=== PATIENT | male | born 1950 | race Caucasian/White ===

== ENCOUNTER 2021-03-05 11:15 | Day surgery (SDC) | payer MEDICARE ==
[2021-02-28 10:41] LABS: BASOPHILS % (AUTO) 0.9 % (0-1); EOSINOPHILS # (AUTO) 0.3 X10'3 (0-0.9); EOSINOPHILS % (AUTO) 5.6 % (0-6); HEMATOCRIT 38.7 % (42.0-52.0); HEMOGLOBIN 13.3 g/dl (14.0-17.9); LYMPHOCYTES # (AUTO) 0.8 X10'3 (1.1-4.8); LYMPHOCYTES % (AUTO) 14.3 % (21-51); MEAN CORPUSCULAR HEMOGLOBIN 31.5 PG (27.0-31.0); MEAN CORPUSCULAR HGB CONC 34.3 g/dL (33.0-36.5); MEAN CORPUSCULAR VOLUME 91.7 FL (78-98); MEAN PLATELET VOLUME 6.8 FL (7.4-10.4); MONOCYTES # (AUTO) 0.6 X10'3 (0-0.9); MONOCYTES % (AUTO) 11.8 % (2-12); NEUTROPHILS # (AUTO) 3.7 X10'3 (1.8-7.7); NEUTROPHILS % (AUTO) 67.4 % (42-75); PLATELET COUNT 218 X10'3 (140-440); RED BLOOD COUNT 4.22 X10'6 (4.70-6.10); RED CELL DISTRIBUTION WIDTH 16.5 % (11.5-14.5); WHITE BLOOD COUNT 5.5 X10'3 (4.5-11.0)
[2021-02-28 10:54] LABS: ALBUMIN 3.5 G/DL (3.4-5.0); ANION GAP 8 (8-16); BLOOD UREA NITROGEN 38 MG/DL (7-18); BUN/CREATININE RATIO 26.2 (5.4-32.0); CHLORIDE 103 MMOL/L (99-107); CREATININE 1.45 MG/DL (0.60-1.10); GLUCOSE 150 MG/DL (70-104); POTASSIUM 4.2 MMOL/L (3.5-5.1); SODIUM 141 MMOL/L (135-145); TOTAL CARBON DIOXIDE 29.6 MMOL/L (24-32); eGFR 48 ML/MIN
[2021-02-28 10:56] LABS: PARTIAL THROMBOPLASTIN TIME 29 SECONDS (22-32)
[2021-03-05] VITALS (8 sets, daily range): BP systolic 172–225; BP diastolic 68–105
[~2021-03-05] VITALS: Ht 165.1 cm; Wt 116.5 kg
[2021-03-05] MEDS ORDERED: diphenhydrAMINE 25mg capsule PO PRN (11:45)
[2021-03-05] MEDS ORDERED: normal saline 1,000 ML IV SCH (11:45)
[2021-03-05] MEDS ORDERED: LIDOcaine/PRILOcaine 5gm cream TP ONE (11:45)
[2021-03-05] MEDS ORDERED: LORazepam 0.5 MG tablet PO PRN (11:45)
[2021-03-05] MEDS ORDERED: GLIM4TAB7 PO (12:02)
[2021-03-05] MEDS ORDERED: PIOG30TA71 PO (12:02)
[2021-03-05] MEDS ORDERED: OMEGA 3 KRILL OIL (12:02)
[2021-03-05] MEDS ORDERED: LISI20TA28 PO (12:02)
[2021-03-05] MEDS ORDERED: PARO40TA4 PO (12:02)
[2021-03-05] MEDS ORDERED: NITR0.4T48 (12:02)
[2021-03-05] MEDS ORDERED: OMEP20TA23 PO (12:02)
[2021-03-05] MEDS ORDERED: MULT-1085 PO (12:02)
[2021-03-05] MEDS ORDERED: AMLO10TA13 PO (12:02)
[2021-03-05] MEDS ORDERED: CHLO25TA10 PO (12:02)
[2021-03-05] MEDS ORDERED: ATOR40TA72 PO (12:02)
[2021-03-05] MEDS ORDERED: GARLIC (12:02)
[2021-03-05] MEDS ORDERED: ASPI-1265 PO (12:02)
[2021-03-05] MEDS ORDERED: midazolam 1 mg/ML 2ml injection ONE ×2 (12:20→13:38)
[2021-03-05] MEDS ORDERED: LIDOcaine 1% (10mg/ml)w/preservative injection 20ml MDV ONE (12:20)
[2021-03-05] MEDS ORDERED: fentaNYL/PF 50MCG/1 ML 2ML syringe ONE (12:20)
[2021-03-05] MEDS ORDERED: iohexol 350MG/ML 100ml bottle IV ONE ×2 (12:20→13:57)
[2021-03-05] MEDS ORDERED: heparin 1,000unit/ml 10ml vial 10 ML ONE (12:20)
[2021-03-05] MEDS ORDERED: verapamil 2.5 mg/ml inj IV ONE (12:21)
[2021-03-05] MEDS ORDERED: nitroGLYCERIN-Tridil 50MG/D5W 250 ML IV ONE (12:21)
[2021-03-05] MEDS ORDERED: hydrALAZINE 20mg/ml inj. IV ONE (12:30)
[2021-03-05] MEDS ORDERED: metoprolol tartrate 1mg/ml inj IV ONE (13:22)
[2021-03-05] MEDS ORDERED: furosemide 40mg/4ml inj ONE (14:21)
[2021-03-05] MEDS ORDERED: ticagrelor 90mg tablet ONE (14:21)
[2021-03-05] MEDS ORDERED: ondansetron/PF 4mg/2ml inj IV PRN (15:00)
[2021-03-05] MEDS ORDERED: proCHLORperazine 10 MG/2 ml inj IV PRN (15:00)
[2021-03-05] MEDS ORDERED: HYDROcodone/acetaminophen 10/325mg tab PO PRN (15:00)
[2021-03-05] MEDS ORDERED: HYDROcodone/acetaminophen 5mg/325mg tablet PO PRN (15:00)
[2021-03-05] MEDS ORDERED: OXAZEpam 15mg capsule PO PRN (15:00)
== END 2021-03-05 17:10 | disposition home or self-care (01) ==
LOC: SSTAY O 11:15
PROVIDERS: ATTEND Internal Medicine Interventional Cardiology
DX: R94.39 Abnormal result of other cardiovascular function study (principal); R07.89 Other chest pain; T82.855A Stenosis of coronary artery stent, initial encounter; I25.10 Atherosclerotic heart disease of native coronary artery without angina pectoris; E11.9 Type 2 diabetes mellitus without complications; I25.2 Old myocardial infarction; I10 Essential (primary) hypertension; E78.5 Hyperlipidemia, unspecified; E66.9 Obesity, unspecified; Z68.41 Body mass index [BMI] 40.0-44.9, adult; Z79.82 Long term (current) use of aspirin; Z79.84 Long term (current) use of oral hypoglycemic drugs; Z79.899 Other long term (current) drug therapy; Z87.891 Personal history of nicotine dependence; Y83.8 Other surgical procedures as the cause of abnormal reaction of the patient, or of later complication, without mention of misadventure at the time of the procedure; Y92.89 Other specified places as the place of occurrence of the external cause
CPT/HCPCS: 36415; 80048; 85025; 85610; 85730; 93005; 93458; 99152; 99153; C1725; C1751; C1769; C1874; C1894; C9600; J0360; J1644; J1940; J2001; J2250; J3010; Q0163; Q9967; A4620; A5120; J3490